=== PATIENT | female | born 1965 | race Caucasian/White ===

== ENCOUNTER 2017-09-24 18:35 | Emergency (ER) | payer OTHER ==
[2017-09-24] MEDS: KETOROLAC 60 MG INJ IM (22:55)
[2017-09-24 23:26] LABS: URINE BLOOD (Dip) POC Trace-intact (NEGATIVE); URINE GLUCOSE (Dip) POC Negative (NEGATIVE); URINE KETONES (Dip) POC Negative (NEGATIVE); URINE LEUKOCYTE EST (Dip) POC 1+ (NEGATIVE); URINE NITRITE (Dip) POC Negative (NEGATIVE); URINE TOTAL PROTEIN POC Negative (NEGATIVE)
== END 2017-09-25 00:55 | disposition home or self-care (01) ==
LOC: FTE 09-25 00:55
DX: M54.42 Lumbago with sciatica, left side (principal); J32.9 Chronic sinusitis, unspecified
CPT/HCPCS: 72100; 81003; 96372; 99284-25